=== PATIENT | female | born 1945 | race Caucasian/White ===

== ENCOUNTER 2018-09-30 19:43 | Emergency (ER) | payer OTHER ==
[2018-09-30 20:18] VITALS: BP 161/95; PULSE 106; TEMP 98.7; BMI 25.9
--- NOTE | 2018-09-30 21:32 | PDOC ---
History of Present Illness - General Stated Complaint: RT TOE PAIN Time Seen by Provider: 09/30/18 21:23 History Source: Patient Exam Limitations: No Limitations - History of Present Illness Initial Comments: 09/30/18 21:51 States has hammertoe, has frequent blisters and calluses on the top of the hammer clippers last week to excise some of the callus and caused a small infection. States has been soaking in using peroxide but was concerned as toe is become red. Is mildly painful, has no streaking or fever. Occurred: reports: last week Severity: reports: mild Pain Location: reports: lower extremity Associated Symptoms (Fall): denies symptoms Past History - Travel Traveled outside of the country in the last 30 days: No Close contact w/someone who was outside of country & ill: No - Past Medical History Allergies/Adverse Reactions: Allergies Allergy/AdvReac Type Severity Reaction Status Date / Time No Known Allergies Allergy Verified 09/30/18 20:18 Home Medications: Ambulatory Orders Amox-Tr/K Cl [Augmentin 875Mg Tablet] 1 tab PO BID #20 tablet 09/30/18 COPD: No CHF: No HTN: Yes - Suicide/Smoking/Psychosocial Hx Smoking History: Never smoked Have you smoked in the past 12 months: No Information on smoking cessation initiated: No Hx Alcohol Use: No Drug/Substance Use Hx: No Review of Systems - Review of Systems Able to Perform ROS?: Yes Is the patient limited [place] proficient: Yes Constitutional: Yes: Symptoms Reported, See HPI. No: Fever, Malaise HEENTM: No: Symptoms Reported Musculoskeletal: Yes: Symptoms Reported, Joint Pain, Joint Swelling Integumentary: Yes: Symptoms Reported, See HPI, Erythema (with ulceration to prox phalynx ) All Other Systems: Reviewed and Negative *Physical Exam - Vital Signs Last Vital Signs Temp Pulse Resp BP Pulse Ox 98.7 F 106 H 16 161/95 100 09/30/18 20:15 09/30/18 20:15 09/30/18 20:15 09/30/18 20:15 09/30/18 20:15 - Physical Exam General Appearance: Yes: Nourished, Appropriately Dressed, Mild Distress HEENT: positive: DARIAN, Normal ENT Inspection, TMs Normal, Pharynx Normal Neck: positive: Tender, Supple Gastrointestinal/Abdominal: positive: Soft Musculoskeletal: positive: Normal Inspection Extremity: positive: Normal Capillary Refill, Tender. negative: Normal Range of Motion (hammer toe to right 2nd toe, ulceration to crown of hammer on 2nd toe , oozing serous drtianage, and erythema to toe with no streaking or foot swelling. 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 Encouraged to soak frequently, reapply bacitracin ointment, highly elevated and follow-up with podiatry this week *DC/Admit/Observation/Transfer Diagnosis at time of Disposition: Cellulitis Qualifiers: Site of cellulitis: extremity Site of cellulitis of extremity: toe Laterality: right Qualified Code(s): L03.031 - Cellulitis of right toe - Discharge Dispostion Disposition: HOME Condition at time of disposition: Stable Decision to Admit order: No - Referrals Referrals: Rachel Salgado [Primary Care Provider] - Dereck Demarco MD [Staff Physician] - - Patient Instructions Printed Discharge Instructions: DI for Cellulitis -- Adult Additional Instructions: Rest, keep area elevated. Avoid strenuous activity or exercise until wound is healed Use hot soaks to area to bring more blood to the surface and encourage drainage May change dressings as needed to keep clean - t Allow water from shower to wash area thoroughly for 2-3 minutes, and pat dry upon exit of shower and replace dressing. Change his dressing daily until the wound is completely healed. May use Tylenol or Motrin for mild pain relief Continue all medications as prescribed Followup with private physician in 2-3 days for wound check Return to emergency Department for worsening swelling, pain, redness, fevers as needed - Post Discharge Activity
[2018-09-30] MEDS ORDERED: AMOX TR/POT CLAV 875MG/125MG TABLETS (FP) PO ONE (21:33)
[2018-09-30] MEDS ORDERED: AMOX TR/POT CLAV 875MG/125MG TABLETS (FP) ONE ×2 (21:35→21:38)
[2018-09-30] MEDS ORDERED: BACITRACIN 15 GM TUBE TOPICAL OINTMENT ONE (21:39)
[2018-09-30] MEDS ORDERED: BACITRACIN 15 GM TUBE TOPICAL OINTMENT TP ONE (21:41)
== END 2018-09-30 22:09 | disposition home or self-care (01) ==
LOC: JERFT 19:43
DX: L03.031 Cellulitis of right toe (principal); I10 Essential (primary) hypertension
CPT/HCPCS: 99281-25